=== PATIENT | male | born 2000 | race Caucasian/White ===

== ENCOUNTER 2023-12-23 14:10 | Emergency (ER) | payer OTHER, SELFPAY ==
[2023-12-23 14:12] VITALS: BP 121/71; PULSE 101; RESP 14; TEMP 36.6; O2SAT 100
--- NOTE | 2023-12-23 14:55 | RAD_ITS ---
EXAM: XR RIGHT HAND COMPLETE, 3 OR MORE VIEWS CLINICAL INDICATION: LACERATION TECHNIQUE: Frontal, lateral and oblique views of the right hand. COMPARISON: No relevant prior studies available. FINDINGS: BONES/JOINTS: There is a fracture through the distal aspect of the distal fourth phalanx. There is overlying soft tissue defect. Preservation of the joint space. No sclerotic or destructive changes observed. SOFT TISSUES: Unremarkable. No soft tissue swelling or gas. No radiopaque foreign body. RAD/Hand Min 3 Views IMPRESSION: Fracture with overlying soft tissue defect of the distal aspect of the distal fourth phalanx. Electronically Signed: Karel Alvarez MD at 17:18 EDT ,
[2023-12-23 14:56] VITALS: BMI 26.0
--- NOTE | 2023-12-23 15:07 | EDS_ITS ---
HPI <LOUISA Whitman - Last Filed: 12/23/23 19:24> History of Present Illness Chief Complaint: Laceration Narrative Narrative: Patient presenting today with a laceration to his left fourth distal finger that he got this afternoon while at work. He reports that a ladder fell on top of his finger causing the injury. He reports that this is not a Workmen's Comp. claim. He is unsure of his last tetanus shot. He is not on any blood thinners, he denies any other injury. He reports that he is healthy otherwise. Tetanus Immunization: Unknown [facility] <LOUISA Whitman - Last Filed: 12/23/23 19:24> [facility] Medical History no medical history Home Medications cephalexin 500 mg capsule 500 mg PO Q6 #40 CAPSULES 12/23/23 [Rx Last Taken Unknown] hydrocodone-acetaminophen 5-325mg 5mg-325mg 1 tab PO Q4H PRN PRN Pain 2 days #15 TABLETS 12/23/23 [Rx Last Taken Unknown] Allergy/AdvReac Type Severity Reaction Status Date / Time No Known Allergies Allergy Verified 12/23/23 14:38 Social History Smoking Status: Never smoker ROS <LOUISA Whitman - Last Filed: 12/23/23 19:24> ROS ED Constitutional Constitutional ED: Denies chills or fever(s) Cardiovascular Cardiovascular: Denies chest pain Respiratory/Chest Respiratory/Chest: Denies cough or dyspnea Gastrointestinal Gastrointestinal: Denies abdominal pain, nausea or vomiting Musculoskeletal Musculoskeletal: Reports arthralgias Integumentary Reports laceration EXAM <LOUISA Whitman - Last Filed: 12/23/23 19:24> Physical Exam Const Vital Signs: 12/23/23 14:12 12/23/23 18:48 12/23/23 18:49 Temperature 98 F 98.0 F Temperature Source Temporal Pulse Rate 101 H 85 85 Respiratory Rate 14 16 16 Blood Pressure 121/71 H 114/54 L 114/54 L Blood Pressure Mean 87 74 74 Pulse Ox 100 98 98 Oxygen Delivery Method Room Air Positive well nourished, well developed and no apparent distress General Appearance ED: well developed HEENT Reports normocephalic and head/scalp atraumatic Mouth ED: Yes moist mucous membranes normal Eyes PERRL and EOMs intact bilaterally Neck full ROM and supple Chest Wall inspection of chest normal Resp normal respiratory effort and clear to auscultation bilaterally Cardio regular rate and regular rhythm GI soft to palpation, non-tender, non-distended and no masses Back/Spine normal ROM and normal to inspection Extremity normal to inspection and full ROM Extremity Narrative: Pain palpation to the distal aspect of the left fourth finger with a complex full-thickness laceration from the medial to lateral aspect of the finger, about 1.5 cm. Nail avulsion. Left radial pulse 2+, good capillary refill, sensation intact. Full flexion and extension at the MCP and PIP joint of the left fourth finger, decreased range of motion at the DIP joint. Neuro oriented x3, CN's II-XII intact bilaterally, moves all extremities, no focal motor deficits and no sensory deficits noted Sensorium / Orientation: awake and alert Psych mental status grossly normal and thought process normal Skin no rashes or lesions noted and no wounds <Dr. Hema Springer, - Last Filed: 12/23/23 17:57> Physical Exam Const Vital Signs: 12/23/23 14:12 12/23/23 18:48 12/23/23 18:49 Temperature 98 F 98.0 F Temperature Source Temporal Pulse Rate 101 H 85 85 Respiratory Rate 14 16 16 Blood Pressure 121/71 H 114/54 L 114/54 L Blood Pressure Mean 87 74 74 Pulse Ox 100 98 98 Oxygen Delivery Method Room Air PROC <LOUISA Whitman - Last Filed: 12/23/23 19:24> Procedures Lacerations Laceration: Length: 1.5 cm Depth: Sub Q Prep: Chlorhexadine Laceration repair: Irrigated and Lidocaine Number of Sutures/Langtry: 5 Suture Information: Vicryl and Ethilon [facility] <LOUISA Whitman - Last Filed: 12/23/23 19:24> [facility] Narrative Medical decision making narrative: Patient presenting today due to a laceration to his left fourth distal phalanx. X-ray was obtained and he does have a tuft fracture. He was given ibuprofen for pain. Laceration repair performed by the attending ED physician, laceration was copiously irrigated with normal saline. Digital block performed with lidocaine. There was nailbed injury, the nail was removed, nailbed was sutured with 3 sutures, surrounding skin sutured with 2 sutures, and nail was tacked back on. Finger placed in a aluminum splint. Given the open fracture, patient will be given a dose of Ancef. We will speak with a hand surgeon to ensure close follow-up. Attending did speak with orthopedic surgeon at [facility], he recommends having patient follow-up as an outpatient. He will be given a prescription for Keflex and [place]. All of this was communicated to patient via the spray dyer with patient understanding. He does have somebody who can schedule the appointment and bring him to this appointment that speaks Polish. He will be discharged home in stable condition. I have personally performed a face to face assessment of the patient and have reviewed the DEBORAH Note. I performed a substantive portion of the visit including all aspects of the following. My miller findings include: History is [patient presents to the emergency department after injuring his left ring finger. Patient states that a ladder fell and struck him on the finger. He is right-hand dominant. He is [place]er-speaking and information and translation comes through instrument and control technician on iPad. Patient unsure of his last tetanus. No significant medical history otherwise.] Exam is [HEENT-PERRLA, EOMI. Cranial nerves II through XII grossly intact. TMs clear. Mucous membranes moist. No adenopathy. Cardiovascular-regular rate and rhythm without murmur or ectopy Lungs-clear to auscultation, chest wall stable without crepitus or subcu emphysema Abdomen-normoactive bowel sounds, soft. Nontender to palpation. No rebound or rigidity. Extremities-intact ?4, normal range of motion, normal pulses. Left ring finger- patient does have avulsion of the nail from the nailbed with laceration medial lateral aspect of the nail. Neurovascularly intact. Medical Decison Making [x-rays of the left ring finger obtained showed a fracture of the distal phalanx.] Discussed plan with patient will perform a digital block and will remove the nail and repair suspected nailbed injury and repair lacerations. Patient will be started on antibiotics and will be given pain medication and an aluminum splint. Patient will be referred to orthopedics or hand surgeon for follow-up. I did discuss case with Dr. Smith at [facility] through their transfer line who felt that patient could be seen as an outpatient for close follow-up. Will start patient on Keflex and [place] fo r pain. Other additions or changes: [None] Radiography X-Ray: Read by ED Physician Diagnostic Testing: Clinical Impression(s) from Imaging Studies Hand X-Ray 12/23/23 14:55 IMPRESSION: Fracture with overlying soft tissue defect of the distal aspect of the distal fourth phalanx. Electronically Signed: Karel Alvarez MD at 17:18 EDT , <Dr. Hema Springer, DO - Last Filed: 12/23/23 17:57> [facility] Narrative Medical decision making narrative: Patient presenting today due to a laceration to his left fourth distal phalanx. X-ray was obtained and he does have a tuft fracture. Laceration repair performed by the attending ED physician, there was nailbed injury, the nail was removed, nailbed was sutured and nail was tacked back on. Given the open fracture, patient will be given a dose of Ancef. We will speak with a hand surgeon to ensure close follow-up. I have personally performed a face to face assessment of the patient and have reviewed the DEBORAH Note. I performed a substantive portion of the visit including all aspects of the following. My miller findings include: History is [patient presents to the emergency department after injuring his left ring finger. Patient states that a ladder fell and struck him on the finger. He is right-hand dominant. He is [place]er-speaking and information and translation comes through instrument and control technician on iPad. Patient unsure of his last tetanus. No significant medical history otherwise.] Exam is [HEENT-PERRLA, EOMI. Cranial nerves II through XII grossly intact. TMs clear. Mucous membranes moist. No adenopathy. Cardiovascular-regular rate and rhythm without murmur or ectopy Lungs-clear to auscultation, chest wall stable without crepitus or subcu emphysema Abdomen-normoactive bowel sounds, soft. Nontender to palpation. No rebound or rigidity. Extremities-intact ?4, normal range of motion, normal pulses. Left ring finger-patient does have avulsion of the nail from the nailbed with laceration medial lateral aspect of the nail. Neurovascularly intact. Medical Decison Making [x-rays of the left ring finger obtained showed a fracture of the distal phalanx.] Discussed plan with patient will perform a digital block and will remove the nail and repair suspected nailbed injury and repair lacerations. Patient will be started on antibiotics and will be given pain medication and an aluminum splint. Patient will be referred to orthopedics or hand surgeon for follow-up. I did discuss case with Dr. Smith at [facility] through their transfer line who felt that patient could be seen as an outpatient for close follow-up. Will start patient on Keflex and [place] for pain. Other additions or changes: [None] Radiography Diagnostic Testing: Clinical Impression(s) from Imaging Studies Hand X-Ray 12/23/23 14:55 IMPRESSION: Fracture with overlying soft tissue defect of the distal aspect of the distal fourth phalanx. Electronically Signed: Karel Alvarez MD at 17:18 EDT , Discharge Plan Triage Chief Complaint: Laceration ED Midlevel Provider: Jackie Vargas ED Provider: Hema Springer Dx/Rx/DC Orders Clinical Impression: Fracture, finger, Nailbed laceration, finger Instructions: ED Fracture, Finger, Open, ED FINGERNAIL REMOVAL Prescriptions: New hydrocodone-acetaminophen [hydrocodone-acetaminophen] 5-325 mg tablet 1 tab PO Q4H PRN PRN (Reason: Pain) 2 Days Qty: 15 0RF cephalexin [cephalexin] 500 mg capsule 500 mg PO Q6 Qty: 40 0RF Primary Care Provider: Care Physician,No Primary Referrals: Care Physician,No Primary [Primary Care Provider] - Activity Restrictions/Additional Instructions: Call tomorrow to follow-up with Dr. Smith (hand Surgeon) Please have somebody with you that speaks Polish and can interpret for you. Disposition Disposition: Home, Self Care
[2023-12-23] MEDS: Lidocaine 1% (20 ml mdv) 20 ML Vial 10 ML INFILT (15:16)
[2023-12-23] MEDS: Ibuprofen 600 MG Tablet PO (15:17)
[2023-12-23] MEDS: Diphth,Pertuss(Acell),Tet Vac 0.5 ML Vial IM (15:17)
[2023-12-23] MEDS: Cefazolin 1 GM/50 ML BAG IV (16:32)
[2023-12-23 18:48] VITALS: BP 114/54; PULSE 85; RESP 16; O2SAT 98
[2023-12-23 18:49] VITALS: BP 114/54; PULSE 85; RESP 16; TEMP 36.7; O2SAT 98
== END 2023-12-23 19:44 | disposition home or self-care (01) ==
PROVIDERS: Emergency Provider Emergency Medicine; Visit Provider Emergency Medicine
DX: S62.635B Displaced fracture of distal phalanx of left ring finger, initial encounter for open fracture (principal); W20.8XXA Other cause of strike by thrown, projected or falling object, initial encounter; Y99.0 Civilian activity done for income or pay; Z23 Encounter for immunization
CPT/HCPCS: 12041; 11750; 11760; 73130; 90471; 90715; 96365; 99284; J7050; A4216